=== PATIENT | female | born 1985 | race Caucasian/White ===

== ENCOUNTER 2019-09-07 20:42 | Emergency (ER) | payer BC, OTHER ==
[~2019-09-07] VITALS: Ht 157.5 cm; Wt 69.2 kg
[~2019-09-07 20:42] MED LIST: ACET325T14 PO; DOXY25TA18 PO; IBUP-1223 PO; OXYC-302 PO; PREN1TAB56 PO
[2019-09-07] MEDS ORDERED: SPIR50TA4 PO (21:08)
[2019-09-07] MEDS ORDERED: KETOROLAC 30 MG/1 ML ONE (21:37)
[2019-09-07] MEDS ORDERED: METHOCARBAMOL 750 MG TABLET ONE (21:37)
[2019-09-07] MEDS ORDERED: METHOCARBAMOL 750 MG TABLET PO ONE (22:00)
[2019-09-07] MEDS ORDERED: KETOROLAC 30 MG/1 ML IM ONE (22:00)
[2019-09-07 22:45] VITALS: BP 94/61
== END 2019-09-07 22:47 | disposition home or self-care (01) ==
LOC: ED 21:55
DX: S16.1XXA Strain of muscle, fascia and tendon at neck level, initial encounter (principal); M54.6 Pain in thoracic spine; V49.49XA Driver injured in collision with other motor vehicles in traffic accident, initial encounter; Y93.89 Activity, other specified; Y92.89 Other specified places as the place of occurrence of the external cause; Y99.8 Other external cause status
CPT/HCPCS: 72125; 96372; 99284; J1885